=== PATIENT | female | born 1985 ===

== ENCOUNTER 2018-02-06 16:17 | Emergency (ER) | payer SELFPAY ==
[~2018-02-06] VITALS: Ht 160 cm; Wt 75.0 kg
[2018-02-06] MEDS ORDERED: BACITRACIN ZINC OINT UDPKT TOP ONE (18:30)
[2018-02-06 19:09] VITALS: BP 129/73
== END 2018-02-06 19:10 | disposition home or self-care (01) ==
LOC: ER 16:17
DX: L03.113 Cellulitis of right upper limb (principal); L30.9 Dermatitis, unspecified
CPT/HCPCS: 99283